=== PATIENT | female | born 1990 | race Caucasian/White ===

== ENCOUNTER → 2016-05-10 | Outpatient (CLI) | payer BC ==
[~2016-05-10] MED LIST: PRENTAB26 PO; PROM12.57 PO
[2016-05-13 14:54] LABS: CHLAMYDIA TRACH RNA*** NOT DETECTED (NOT DETECTED); GC (NEIS GONORRHOEAE)RNA** NOT DETECTED (NOT DETECTED)
== END | disposition home or self-care (01) ==
LOC: C.LABSPEC 13:53
PROVIDERS: ATTEND Obstetrics & Gynecology
DX: O09.01 Supervision of pregnancy with history of infertility, first trimester (principal)

== ENCOUNTER → 2016-05-10 | Outpatient (CLI) | payer BC ==
[2016-05-10 10:15] LABS: BASO % 0.2 %; BASO ABS # 0.02 K/uL (0-0.2); COMPLETE YES; EOS % 0.6 %; HEMATOCRIT 38.8 % (37-47); IG% 0.2 %; LYMPH ABS # 1.31 K/uL (1.2-3.4); MEAN CELL VOLUME 83.8 fL (80-100); MEAN CORPUSCULAR HEMOGLOBIN 29.8 pg (25-34); MEAN CORPUSCULAR HGB CONC 35.6 g/dl (32-36); MEAN PLATELET VOLUME 10.6 fL (7.4-10.4); MONO % 5.7 %; NEUT % 79.3 %; PLATELET COUNT 215 K/uL (130-400); RED BLOOD COUNT 4.63 M/uL (4.2-5.4); WHITE BLOOD COUNT 9.37 K/uL (4.8-10.8)
[2016-05-10 10:36] LABS: THYROID STIMULATING HORMONE 3.06 uIu/ml (0.300-4.500)
== END | disposition home or self-care (01) ==
LOC: C.LAB1850 09:00
PROVIDERS: ATTEND Obstetrics & Gynecology
DX: O09.01 Supervision of pregnancy with history of infertility, first trimester (principal); O99.281 Endocrine, nutritional and metabolic diseases complicating pregnancy, first trimester; E03.9 Hypothyroidism, unspecified

== ENCOUNTER → 2016-05-10 | Outpatient (CLI) | payer BC | END | disposition home or self-care (01) | LOC: C.PAPS 14:46 | PROVIDERS: ATTEND Obstetrics & Gynecology | DX: O09.01 Supervision of pregnancy with history of infertility, first trimester (principal); Z3A.00 Weeks of gestation of pregnancy not specified ==

== ENCOUNTER → 2016-07-02 | Outpatient (CLI) | payer BC ==
[2016-07-02 12:29] LABS: THYROID STIMULATING HORMONE 2.55 uIu/ml (0.300-4.500)
[2016-07-02 14:08] LABS: GTGD 50 Grams
== END | disposition home or self-care (01) ==
LOC: C.LAB1850 10:15
PROVIDERS: ATTEND Obstetrics & Gynecology
DX: E03.9 Hypothyroidism, unspecified (principal); O09.02 Supervision of pregnancy with history of infertility, second trimester; Z3A.00 Weeks of gestation of pregnancy not specified

== ENCOUNTER → 2016-09-24 | Outpatient (CLI) | payer BC ==
[2016-09-24 10:38] LABS: URINE APPEARANCE CLEAR (CLEAR); URINE BILIRUBIN NEG (NEG); URINE COLOR YELLOW; URINE NITRITE NEG (NEG); URINE PH 7.5 (4.5-7.5); URINE SPECIFIC GRAVITY 1.011 (1.000-1.030); UROBILINOGEN NEG (NEG)
[2016-09-24 10:42] LABS: MANUAL MICROSCOPIC REQUIRED? NO; REVIEW REQ? NO
== END | disposition home or self-care (01) ==
LOC: C.LABSPEC 10:00
PROVIDERS: ATTEND Obstetrics & Gynecology
DX: O09.03 Supervision of pregnancy with history of infertility, third trimester (principal)

== ENCOUNTER → 2016-09-24 | Outpatient (CLI) | payer BC ==
[2016-09-24 11:33] LABS: HEMATOCRIT 33.5 % (37-47)
[2016-09-24 12:17] LABS: GTGD 50 Grams
== END | disposition home or self-care (01) ==
LOC: C.LAB1850 09:18
PROVIDERS: ATTEND Obstetrics & Gynecology
DX: O09.03 Supervision of pregnancy with history of infertility, third trimester (principal)

== ENCOUNTER → 2016-11-17 | Outpatient (CLI) | payer BC | END | disposition home or self-care (01) | LOC: C.LABSPEC 10:58 | PROVIDERS: ATTEND Obstetrics & Gynecology | DX: O09.03 Supervision of pregnancy with history of infertility, third trimester (principal) ==

== ENCOUNTER 2016-11-23 13:52 | Outpatient (CLI) | payer BC ==
[~2016-11-23] VITALS: Ht 160 cm; Wt 100.0 kg
[2016-11-23] MEDS ORDERED: LACTATED RINGER'S 1000ML 1,000 ML IV SCH (14:27)
[2016-11-23 15:55] VITALS: Ht 160 cm; Wt 100.0 kg
[2016-11-23] MEDS ORDERED: PRENTAB26 PO (15:55)
[2016-11-23] MEDS ORDERED: PROM12.57 PO (15:55)
== END 2016-11-23 17:27 | disposition home or self-care (01) ==
LOC: C.OPB 13:52 → C.LD 13:52 → C.OPB 17:27 → EDSTATUS 12-11 13:56
PROVIDERS: ATTEND Obstetrics & Gynecology
DX: O99.283 Endocrine, nutritional and metabolic diseases complicating pregnancy, third trimester (principal); E86.0 Dehydration; Z3A.37 37 weeks gestation of pregnancy

== ENCOUNTER 2016-12-20 19:00 | Inpatient (IN) | payer BC ==
[~2016-12-20] VITALS: Ht 160 cm; Wt 99.1 kg
[2016-12-20 21:16] VITALS: Ht 160 cm; Wt 99.1 kg
[2016-12-20] MEDS ORDERED: LACTATED RINGER'S 1000ML 1,000 ML IV SCH (21:17)
[2016-12-20] MEDS ORDERED: LACTATED RINGER'S 1000ML 1,000 ML IV PRN (21:17)
[2016-12-20 21:46] LABS: HEMATOCRIT 34.5 % (37-47); MEAN CELL VOLUME 90.3 fL (80-100); MEAN CORPUSCULAR HEMOGLOBIN 31.9 pg (25-34); MEAN CORPUSCULAR HGB CONC 35.4 g/dl (32-36); MEAN PLATELET VOLUME 10.5 fL (7.4-10.4); PLATELET COUNT 183 K/uL (130-400); RED BLOOD COUNT 3.82 M/uL (4.2-5.4); WHITE BLOOD COUNT 10.97 K/uL (4.8-10.8)
[2016-12-20] MEDS ORDERED: LACTATED RINGER'S 1000ML 500 ML IV PRN (21:46)
[2016-12-20] MEDS ORDERED: OXYTOCIN 30 UNITS/500ML NSS IV PRN (22:00)
[2016-12-21] MEDS ORDERED: BUPIVACAINE 0.25% 30 ML VIAL ONE (02:20)
[2016-12-21] MEDS ORDERED: EpHEDrine SULFATE INJ 50 MG/ML AMP ONE (02:20)
[2016-12-21] MEDS ORDERED: FENTANYL 2MCG/ML ROPIV 1.25MG/ML 100ML BAG EPI ONE (02:20)
[2016-12-21] MEDS ORDERED: FENTANYL CITRATE INJ 50 MCG/1 ML 2 ML VIAL ONE (02:20)
[2016-12-21] MEDS ORDERED: LACTATED RINGER'S 1000ML 500 ML IV PRN (02:56)
[2016-12-21] MEDS ORDERED: NALOXONE HCL INJ 1 MG in SODIUM CHLORIDE 0.9% 1000ML 1,000 ML IV PRN (02:56)
[2016-12-21] MEDS ORDERED: PROMETHAZINE HCL INJ 6.25 MG in SODIUM CHLORIDE 0.9% 50ML 50 ML IV PRN (03:00)
[2016-12-21] MEDS ORDERED: NALOXONE HCL INJ 0.4 MG/1 ML VIAL/CARP IV PRN (03:00)
[2016-12-21] MEDS ORDERED: NALBUPHINE HCL INJ 10 MG/ML AMP IV PRN (03:00)
[2016-12-21] MEDS ORDERED: DiphenhydrAMINE HCL 50 MG/ML VIAL IV PRN (03:00)
[2016-12-21] MEDS ORDERED: ONDANSETRON INJ 2 MG/ML 2 ML VIAL IV PRN (03:00)
[2016-12-21] MEDS ORDERED: EpHEDrine SULFATE INJ 50 MG/ML AMP IV PRN (03:00)
[2016-12-21] MEDS ORDERED: FENTANYL 2MCG/ML ROPIV 1.25MG/ML 100ML BAG EPI PRN (03:00)
[2016-12-21] MEDS ORDERED: METHYLERGONOVINE MALEATE 0.2 MG/ML AMP ONE (08:42)
[2016-12-21] MEDS ORDERED: BENZOCAINE 20% AER SPR 82.5 GM CAN EXT PRN (09:30)
[2016-12-21] MEDS ORDERED: OXYCODONE/ACETAMINOPHEN 5-325 TAB PO PRN (09:30)
[2016-12-21] MEDS ORDERED: LANOLIN OINT EXT PRN ×2 (09:30)
[2016-12-21] MEDS ORDERED: DIPHTHERIA/TETANUS/PERTUSSIS 0.5 ML SYR/VIAL IM. ONE (09:30)
[2016-12-21] MEDS ORDERED: METHYLERGONOVINE MALEATE 0.2 MG/ML AMP IM ONE (09:30)
[2016-12-21] MEDS ORDERED: SUPERCREAM 0.870 % 15GM JAR EXT PRN (09:30)
[2016-12-21] MEDS ORDERED: OXYTOCIN 30 UNITS/500ML NSS IV PRN (09:30)
[2016-12-21] MEDS ORDERED: HYDROCORTISONE ACETATE 25 MG SUPP PR PRN (09:30)
[2016-12-21] MEDS ORDERED: ACETAMINOPHEN 325 MG TAB PO PRN (09:30)
--- NOTE | 2016-12-21 10:23 | DELIVERY SUMMARY ---
DATE OF OPERATION: 12/21/2016 DATE OF DELIVERY: 12/21/2016 PREOPERATIVE DIAGNOSIS: Intrauterine at 41-3/7 weeks. POSTOPERATIVE DIAGNOSES: 1. Intrauterine at 41-3/7 weeks. 2. Deceleration with contractions. PROCEDURES: 1. García catheter for cervical ripening. 2. Pitocin augmentation. 3. Normal spontaneous vaginal delivery. 4. Stellate vaginal laceration and bilateral labial lacerations with repair. SURGEON: Dr. Pang. ANESTHESIA: Epidural. ESTIMATED BLOOD LOSS: 450 mL. PROCEDURE: The patient presented to labor and delivery on the night of 12/20/2016 to have a García bulb placed for cervical ripening for her post dates induction on the following day. The García was placed successfully but while under observations there were a couple decelerations that appeared variable and occurred with a contraction. Decision was made just to go ahead and proceed with induction at that time without sending the patient home. So, the García bulb was placed. She was placed on Pitocin augmentation. The García bulb eventually fell out. She eventually underwent epidural anesthesia. She had amniotomy at 2:53 a.m. for clear fluid. She progressed then spontaneously complete complete +2 station. The patient pushed effectively to deliver a viable female in ABRAM presentation. There was no nuchal cord. The nose and mouth were bulb suctioned. The rest of the infant was then delivered without difficulty. There was immediate cry and the was vigorous so the nose and mouth were bulb suctioned and the was placed on the maternal abdomen for drying and attention. At 1 minute of life the cord was clamped and cut. Cord blood and segment were obtained. The placenta was delivered spontaneously intact with a 3-vessel cord. Hemostasis obtained with dilute Pitocin, fundal massage and IM methargen. A stellate vaginal laceration was repaired with 3-0 Vicryl and bilateral labial lacerations were repaired with interrupted sutures of 4-0 Vicryl. Apgars were 8 and 9. Sponge, lap and needle counts were correct. Mother and baby doing well at the end of the delivery. I attest to the content of the Intraoperative Record and any orders documented therein. Any exception s are noted below.
--- NOTE | 2016-12-21 10:32 | Anesthesia Procedure Note ---
Anesthesia Epidural Removal Nt Date & Time Dec 21, 2016 at 10:32 Vital Signs Pain Intensity: 0.0 Notes Mental Status: alert / awake / arousable, participated in evaluation Nausea / Vomiting: adequately controlled Pain: adequately controlled Airway Patency, RR, SpO2: stable & adequate BP & HR: stable & adequate Hydration State: stable & adequate Neuraxial Anesthesia: was administered, sensory block is resolving Anesthetic Complications: no major complications apparent, pt satisfied with anesthetic care Epidural: removed without complications, with tip intact
[2016-12-21 12:30] VITALS: BP 134/72; PULSE 100; TEMP 36.7
[2016-12-21] MEDS: IBUPROFEN 600 MG TAB PO PRN ×3 (12:53→22:20)
[2016-12-21 15:30] VITALS: BP 116/73; PULSE 85; TEMP 36.6
[2016-12-21 19:30] VITALS: BP 109/69; PULSE 88; TEMP 36.7
[2016-12-21] MEDS: DOCUSATE SODIUM 100 MG CAP PO SCH (19:53)
[2016-12-21 23:45] VITALS: BP 121/76; PULSE 94; TEMP 36.6
[2016-12-22] MEDS: IBUPROFEN 600 MG TAB PO PRN ×3 (03:22→13:03)
[2016-12-22 04:00] VITALS: BP 120/70; PULSE 90; TEMP 36.8
[2016-12-22 06:58] LABS: HEMATOCRIT 30.1 % (37-47)
--- NOTE | 2016-12-22 07:11 | Discharge Instructions ---
Discharge Instructions Date of Service Dec 22, 2016. Admission Reason for Admission: García Bulb Discharge Discharge Diagnosis / Problem: DELIVERY Discharge Goals Goal(s): Routine recovery after delivery Medications Continue Dispensed Medications: supercream, dermaplast, tucks, lansinoh Activity Recommendations Activity Limitations: per Instructions/Follow-up section . Instructions / Follow-Up Instructions / Follow-Up ACTIVITY RECOMMENDATIONS: * Gradual return to full activity over the next 2-3 weeks. * No lifting - nothing heavier than baby over the next 2-3 weeks. * Do not engage in vigorous exercise, sexual activity or sports until cleared by your physician. * Do not drive or operate any motorized equipment until cleared by your physician. * You may shower/bathe daily. MEDICATIONS: For discomfort or pain, you may use Acetaminophen (Tylenol), Ibuprofen (Advil), or Naproxen (Aleve) following the package directions. For constipation you may use Colace following the package directions. BREAST CARE: If you are not breast feeding: * Wear a supportive bra 24 hours a day for one to two weeks. * Avoid stimulating your breasts and nipples as much as possible during the first few weeks after delivery. * When taking a shower, have the warm water hit your back, not breasts. * When your breasts feel full, apply ice packs. Usually three to four times a day helps ease the discomfort. * Take a mild pain medication (Tylenol / Motrin) when you are uncomfortable. If breast feeding: * Use breast milk to lubricate nipples. Lansinoh cream may be used for sore nipples. You do not need to remove cream prior to breast feeding. If using a different brand of cream, check the label for directions regarding removal of cream prior to nursing. * Wear a supportive bra. * If having problems with breasts or breast feeding, call a seo consultant or your health care provider. EPISIOTOMY CARE: After delivery, if you have an episiotomy (stitches), the following steps will ease discomfort and aid healing. * For the first 24 hours after delivery, place ice packs next to your episiotomy to help reduce swelling. * After the first 24 hour-period, sitz baths, either portable or in the tub, are suggested. A shower with a shower arm sprayed over the episiotomy may be comforting. * Aimee care should be done after each voiding and bowel movement. Squirt warm water from a plastic bottle over the perineum (region of the body between the anus and urinary opening) and pat dry. * Use Dermoplast to ease discomfort. Shake container. Clive directly over the episiotomy. Place a Tucks on a clean sanitary pad next to your episiotomy. SPECIAL CARE INSTRUCTIONS: When you are discharged from the hospital, it is important for you to follow the instructions listed below: * During the first week at home, you should be able to care for yourself and your baby. In addition, the usual light household activities are encouraged. * Limit your activities to the way you feel. Do not try to clean the house or move furniture. Be sensible. * If you actively engage in sports and have done so up until the time of your delivery, you may resume these activities as soon as you feel able. This may take up to one month or even longer. Use good judgment. * Continue to take your vitamins for at least six weeks after the of your baby. * Your diet need not be limited unless you were on a special diet before your delivery. Breast-feeding mothers need around 2500 calories per day and at least 64-80 ounces of fluid per day (8 to 10 glasses). * You should eat foods from the four major food groups. Crash diets or fad diets are to be avoided. Eating lean meats, fresh fruits and vegetables, low-fat dairy products, high fiber foods and a regular exercise program, will help you get back to your pre- weight without putting your health at risk. * Constipation is sometimes a problem after delivery. Take a mild laxative as needed. If breast feeding, Milk of Magnesia is acceptable to use. You may use a suppository or Fleets enema if no episiotomy. * A daily shower or tub bath is suggested. Be sure to thoroughly and gently dry the perineum. * A bloody vaginal discharge will usually continue until around four weeks post . A small amount of bleeding may continue for as long as six weeks. Vaginal discharge changes from the bright red bleeding after delivery to pink then brownish and finally yellowish-pink before becoming white and disappearing. * Bleeding may increase with activity. Your first period may come in 4-8 weeks. If you are breast feeding, your period may be delayed even longer. * Springer (sex) can begin whenever both you and your partner feel comfortable and do not have any form of genital infection. It is recommended that you wait at least six weeks for internal and external healing to occur. If you have questions, please talk to your health care practitioner. A condom should be used to prevent infection and . * Foreplay, gentle intercourse and lubrication is very important the first several times to prevent pain. A water-based lubricant such as K-Y jelly or Astroglide may be used. * If you have RH negative blood and your baby is RH positive, you will receive RHOGAM by injection prior to discharge. The nurse will give you a card to keep with you that has the date and place that you received RHOGAM after delivery. * During your care, you had a Rubella screen done to check for the presence of rubella antibodies in your blood. If your test was negative, you will receive a Rubella vaccine prior to discharge. This vaccine may cause a fever, soreness at the injection site and flu-like symptoms. If these symptoms persist, notify your health care practitioner. is not advised for one month after a Rubella vaccine. * Verbalizes understanding of car seat law as reviewed with patient nursing. * Car Seat hand-out given and reviewed with patient by nursing. * Shaken baby information reviewed with patient by nursing. Call you doctor if: * Heavy bleeding (saturating several pads an hour) or passing clots the size of your fist. * A fever >101 degrees F (38.3 degrees C) on two occasions four hours apart and /or chills. * Unusual pain in the pelvic or vaginal areas. * "Baby Blues" lasting longer than two weeks. If you have any questions or concerns, call your health care practitioner at . FOLLOW UP VISIT: * Please call the office at to schedule a 6 week examination. It is important you keep this appointment. It is important for you to make arrangements for either yearly or twice yearly check-ups thereafter. Current Hospital Diet Patient's current hospital diet: Regular OB Diet Discharge Diet Recommended Diet: Regular Diet Pending Studies Studies pending at discharge: no Medical Emergencies . Who to Call and When: Medical Emergencies: If at any time you feel your situation is an emergency, please call 911 immediately. . Non-Emergent Contact Non-Emergency issues call your: Primary Care Provider . . "Provider Documentation" section prepared by Yokasta Trammell. . VTE Core Measure Inpt VTE Proph given/why not?: Treatment not indicated
--- NOTE | 2016-12-22 07:14 | Progress Note ---
Subjective Dec 22, 2016. Subjective conversation w/ patient, physical exam, chart review, lab review Ambulation: ambulating normally Voiding: no voiding problems Passing Gas: Yes Diet Tolerance: Regular Diet Lochia: Moderate Feeding Type: Breast Feeding Pain: controlled Review of Systems Respiratory: No shortness of breath Cardiac: No chest pain Abdomen: No nausea, No vomiting Female : No dysuria Objective Vital Signs Date Time Temp Pulse Resp B/P (MAP) Pulse Ox O2 Delivery O2 Flow Rate FiO2 12/22/16 04:00 36.8 90 18 120/70 (87) Room Air 12/21/16 23:45 Room Air 12/21/16 23:45 36.6 94 18 121/76 (91) Room Air 12/21/16 19:30 Room Air 12/21/16 19:30 36.7 88 20 109/69 (82) Room Air 12/21/16 15:30 36.6 85 20 116/73 (87) Room Air 12/21/16 15:30 Room Air 12/21/16 12:30 36.7 100 20 134/72 (92) Room Air 12/21/16 12:30 Room Air Physical Exam General Appearance: WELL-APPEARING, WD/WN, NO APPARENT DISTRESS Respiratory/Chest: lungs clear, normal breath sounds Cardiovascular: regular rate, rhythm Abdomen: normal bowel sounds, soft Fundus: Firm, Tender (appropriately tender), Relation to Umbilicus (1 below U) Extremities: no calf tenderness Laboratory Results Last 24 Hours Test 12/22/16 06:38 Hemoglobin 10.3 g/dL Hematocrit 30.1 % Assessment and Plan Post- Day#: 1 Continue Routine Care: - Vital Signs stable - Hemoglobin Reviewed. 10.3 - Blood Type: A+, GBS-, Rubella Immune. - Pt is doing well clinically. - Encourage Ambulation, Monitor and Control pain with Motrin PRN, Resume regular diet, Monitor Lochia - Encourage Breast Feeding. - Pt counselled on discharge instructions. FLAQUITO TRAMMELL PGY1 FM RESIDENT Resident Physician Supervision Note: I interviewed and examined the patient. Discussed with Dr. Trammell and agree with findings and plan as documented in the note. Any exceptions or clarifications are listed here: Doing well. She desires d/c later today. Instructions given. Documented By: Miranda Pang Resident Tracking Resident Involvement: Resident Care Provided Care Provided: OB Delivery
[2016-12-22 07:28] VITALS: BP 116/70; PULSE 80; TEMP 36.6; O2SAT 97
[2016-12-22] MEDS ORDERED: PRENATAL VITAMIN TAB PO SCH (08:00)
[2016-12-22] MEDS: DOCUSATE SODIUM 100 MG CAP PO SCH (11:01)
[2016-12-22 16:35] VITALS: BP_DIAS 70; PULSE 80; TEMP 36.6
== END 2016-12-22 16:35 | disposition home or self-care (01) | DRG 775 ==
LOC: C.OPB 19:00 → C.LD 19:01 → C.OPB 21:19 → C.OBG 12-21 12:30
PROVIDERS: ADMIT Obstetrics & Gynecology; ATTEND Obstetrics & Gynecology
PROC: 3E033VJ Introduction of Other Hormone into Peripheral Vein, Percutaneous Approach (ICD-10-PCS; principal; 2016-12-21)
PROC: 10E0XZZ Delivery of Products of Conception, External Approach (ICD-10-PCS; principal; 2016-12-21)
PROC: 10907ZC Drainage of Amniotic Fluid, Therapeutic from Products of Conception, Via Natural or Artificial Opening (ICD-10-PCS; principal; 2016-12-21)
PROC: 0HQ9XZZ Repair Perineum Skin, External Approach (ICD-10-PCS; principal; 2016-12-21)
DX: O48.0 Post-term pregnancy (principal); O76 Abnormality in fetal heart rate and rhythm complicating labor and delivery; O70.0 First degree perineal laceration during delivery; Z3A.41 41 weeks gestation of pregnancy; Z37.0 Single live birth

== ENCOUNTER → 2017-02-01 | Outpatient (CLI) | payer BC ==
[~2017-02-01] MED LIST changes: -PROM12.57 PO
[2017-02-01 15:59] LABS: THYROID STIMULATING HORMONE 1.52 uIu/ml (0.300-4.500)
== END | disposition home or self-care (01) ==
LOC: C.LAB1850 14:30
PROVIDERS: ATTEND Obstetrics & Gynecology
DX: E03.9 Hypothyroidism, unspecified (principal)

== ENCOUNTER → 2017-05-04 | Outpatient (CLI) | payer BC | END | disposition home or self-care (01) | LOC: C.LAB1850 09:28 | PROVIDERS: ATTEND Obstetrics & Gynecology | DX: Z32.01 Encounter for pregnancy test, result positive (principal) ==

== ENCOUNTER → 2017-05-06 | Outpatient (CLI) | payer BC | END | disposition home or self-care (01) | LOC: C.LAB1850 09:46 | PROVIDERS: ATTEND Obstetrics & Gynecology | DX: O20.0 Threatened abortion (principal) ==

== ENCOUNTER → 2017-06-21 | Outpatient (CLI) | payer BC ==
[2017-06-21 10:07] LABS: BASO % 0.3 %; BASO ABS # 0.02 K/uL (0-0.2); EOS % 0.9 %; EOS ABS # 0.06 K/uL (0-0.5); HEMATOCRIT 38.8 % (37-47); HEMOGLOBIN 13.8 g/dL (12.0-16.0); IG# 0.01 K/uL (0.00-0.02); LYMPH % 21.1 %; LYMPH ABS # 1.44 K/uL (1.2-3.4); MEAN CELL VOLUME 84.9 fL (80-100); MEAN CORPUSCULAR HEMOGLOBIN 30.2 pg (25-34); MEAN CORPUSCULAR HGB CONC 35.6 g/dl (32-36); MEAN PLATELET VOLUME 10.2 fL (7.4-10.4); MONO % 6.7 %; MONO ABS # 0.46 K/uL (0.11-0.59); NEUT % 70.9 %; NEUT ABS # 4.83 K/uL (1.4-6.5); PLATELET COUNT 213 K/uL (130-400); RED CELL DISTRIBUTION WIDTH SD 40.2 fL (36.4-46.3); WHITE BLOOD COUNT 6.82 K/uL (4.8-10.8)
== END | disposition home or self-care (01) ==
LOC: C.LAB1850 08:58
PROVIDERS: ATTEND Obstetrics & Gynecology
DX: Z34.81 Encounter for supervision of other normal pregnancy, first trimester (principal)

== ENCOUNTER → 2017-08-05 | Outpatient (CLI) | payer BC | END | disposition home or self-care (01) | LOC: C.LAB1850 09:48 | PROVIDERS: ATTEND Obstetrics & Gynecology | DX: Z34.82 Encounter for supervision of other normal pregnancy, second trimester (principal) ==

== ENCOUNTER 2017-11-30 08:51 | Outpatient (CLI) | payer BC ==
[2017-11-30] MEDS ORDERED: TERBUTALINE SULFATE 1 MG/ML VIAL ONE (11:12)
[2017-11-30] MEDS ORDERED: TERBUTALINE SULFATE 1 MG/ML VIAL SQ PRN (11:15)
== END 2017-11-30 12:00 | disposition home or self-care (01) ==
LOC: C.OPB 08:51 → C.LD 08:52 → C.OPB 12:00
PROVIDERS: ATTEND Obstetrics & Gynecology
DX: O62.9 Abnormality of forces of labor, unspecified (principal); Z3A.33 33 weeks gestation of pregnancy; Z87.442 Personal history of urinary calculi

== ENCOUNTER 2021-11-17 07:33 | Inpatient (IN) ==
[2021-11-17] MEDS ORDERED: LACTATED RINGER'S 1,000 ML IV PRN (07:37)
[2021-11-17] MEDS ORDERED: OXYTOCIN 30 UNITS/500 ML BAG IV PRN ×3 (07:37→16:30)
[2021-11-17] MEDS ORDERED: PENICILLIN G POTASSIUM 6 MU in DEXTROSE 5% 250 ML IV ONE (07:50)
--- NOTE | 2021-11-17 07:53 | History & Physical Report ---
Date of Service November 17, 2021 Assessment & Plan (1) GBS carrier: (2) with 39 completed weeks gestation: (3) Large for gestational age fetus affecting management of mother: Plan admit, gbs prophylaxis. fetus category one. Plan pitocin induction. arom as indicated. anticipate . Admission and Anticipated Discharge Date Admission Date: November 17, 2021 History of Present Illness Chief Complaint: induction Primary Care Provider: TANYA Rendon Patient is a 30yowf with iup at 39 4/7 weeks who presents to labor and delivery for induction for LGA babies. Her last baby was 9+ pounds. She had a kaufman placed last night and it fell out about 10pm. she is having some contractions and had a little bit of bleeding after placement. +fm. complicated by unstable lie. Was vertex last night. and Delivery Plans GBS + urine treat in labor Obesity (BMI between 35-39 @ beginning of ) *Growth US @ 32 wks *Weekly NSTs @ 36wks Transverse/unstable lie Consider induction at 39wk-40w due to history of prior babies size-Scheduled 11/17/21 Covid Test 11/11/21 OB Labs: Blood Type A Positive 11/06/21 Antibody Screen NEGATIVE 11/06/21 Hemoglobin 12.0 g/dl (12.0-16.0) 11/06/21 Hematocrit 34.2 % (34.1-44.9) 11/06/21 Mean Corpuscular Volume 89.1 fL (80.0-100.0) 11/06/21 Platelet Count 191 K/uL (130-400) 11/06/21 Rubella IgG Antibody Immune (Immune) 04/03/21 Rapid Plasma Reagin Nonreactive (Nonreactive) 04/03/21 Hepatitis B Surface Antigen Neg (Neg) 04/03/21 Hepatitis C Antibody Neg (Neg) 04/03/21 HIV (1&2) Ab and P24 Ag, 4th Gener Neg (Neg) 04/03/21 Glucose 1 Hour 50 gm Load 100 mg/dl (70-130) 08/26/21 OB Optional Labs: Chlamydia trachomatis RNA NOT DETECTED (NOT DETECTED) 04/03/21 Neisseria gonorrhoeae RNA NOT DETECTED (NOT DETECTED) 04/03/21 Thyroid Stimulating Hormone (TSH) 1.520 uIu/ml (0.300-4.500) 02/01/17 GBS positive urine Allergies Allergy/AdvReac Type Severity Reaction Status Date / Time No Known Allergies Allergy Verified 11/16/21 11:00 Home Medications Medication Instructions Recorded Confirmed Type prenat.vits,micah,[id number]-[id number] 1 tab PO DAILY 04/01/21 11/16/21 History breast pump #1 ea 09/23/21 11/16/21 Rx Patient History Medical History Arrhythmia Cramping affecting , antepartum Dehydration Encounter for visit Encounter for pre-operative examination Encounter for preventative adult health care examination Endometrioma History of chicken pox History of dysmenorrhea History of kidney stones History of ovarian cyst Hx of vaginal delivery Ovarian cyst Post-dates with 23 completed weeks gestation contractions Spontaneous onset of labor Subclinical hypothyroidism (spontaneous vaginal delivery) Term Urinary symptom or sign Urinary tract infection Vaginal bleeding Surgical History History of oral surgery History of tonsillectomy Family History Grandmother (Maternal) Colorectal cancer Grandfather (Maternal) Diabetes Mother Hypertension Father Melanoma Other Heart disease Denies family history of Ovarian cancer Myocardial infarction Breast cancer Social History Smoking Status: Never smoker Second Hand Exposure: No; Hx Alcohol Use: No Hx Substance Use: No Preferred Language: Danish Communication Ability: Effective Workforce Development Assistant Required: No Beliefs That Will Affect Care: None marital status: marital status details: Clarisa Lamberttio (29) [phone] Current Living Situation: Spouse and Family Current Living Situation Comment: lives with spouse, 2 children, no pets current occupational status: employed current occupation: [employer] Feels Safe at Home: Yes caffeine: Yes Dental Care, Regularly: Yes Seatbelt Use: always Sunscreen Use: Yes Assistive Devices: None OB History Past Pregnancies Del. Date GA wks Lbr Lgth wt Sex Type del Anes Place Del Prov ? Com ment 12/21/16 41 7 8-3 F Epidu [facility] Dr. Miramontes No 01/13/18 39 12 9 M Epidura l [facility] Dr. Moffett No Physical Exam Constitutional: WD/WN, vitals as above Gastrointestinal (Abdomen): soft, gravid, nt Psychiatric: A+Ox3, euthymic affect Genitourinary: cx--3+/75/-2/mid/soft cephalic toco--irritabilit efm--150s with mod variability, accels to 170s, no decels Results & Data ([facility]) Vital Signs (Past 12 Hours) Vital Signs Pulse BP 11/17/21 07:44 120 H 136/83 Code Status & VTE Plan VTE Prophylaxis Plan VTE Prophylaxis will be ordered: No Coding Level of Care Code None Diagnoses GBS carrier Z22.330 with 39 completed weeks gestation Z3A.39 Large for gestational age fetus affecting management of mother O36.60X0
[2021-11-17 08:08] LABS: Hematocrit (blood only) 35.6 % (34.1-44.9); Hemoglobin 12.4 g/dl (12.0-16.0); Mean Corpuscular Hemoglobin 30.7 pg (25.0-34.0); Mean Corpuscular Hgb Conc 34.8 g/dL (32.0-36.0); Mean Corpuscular Volume 88.1 fL (80.0-100.0); Platelet Count 180 K/uL (130-400); RDW Coefficient of Variation 12.8 % (11.5-14.5); RDW Standard Deviation 41.2 fL (36.4-46.3); Red Blood Count 4.04 M/uL (3.93-5.22); White Blood Count 9.49 K/ul (4.8-10.8)
[2021-11-17] MEDS ORDERED: PENICILLIN G POTASSIUM 3 MU in DEXTROSE 5% 100 ML IV PRN (10:37)
[2021-11-17] MEDS ORDERED: SODIUM CHLORIDE 0.9% 250 ML IV PRN (11:48)
[2021-11-17] MEDS ORDERED: ePHEDrine sulfate 50 MG/ML AMP ONE (13:11)
[2021-11-17] MEDS ORDERED: BUPIVACAINE 0.25% 30 ML VIAL ONE (13:11)
[2021-11-17] MEDS ORDERED: fentaNYL citrate 100 MCG/2 ML VIAL ONE (13:11)
[2021-11-17] MEDS ORDERED: SODIUM CHLORIDE 0.9% INJ 10 ML VIAL ONE (13:11)
[2021-11-17] MEDS ORDERED: LIDOCAINE 2%/EPINEPHRINE 1:200,000 20 ML SDV ONE (13:11)
[2021-11-17] MEDS ORDERED: fentaNYL 2MCG/ML ROPIVACAINE 1.25MG/ML 100 ML BAG EPI ONE (13:12)
--- NOTE | 2021-11-17 13:15 | Anesthesiology Consultation ---
Date of Service November 17, 2021 Assessment & Plan (1) Encounter for pre-operative examination: Chart Review Chart Review: Acceptable Risk for Labor Epidural History Height/Weight Height: 5 ft 5 in Weight: 107.586 kg Allergies Allergy/AdvReac Type Severity Reaction Status Date / Time No Known Allergies Allergy Verified 11/17/21 08:48 Medications Home Medications Medication Instructions Recorded Confirmed Last Taken prenat.vits,micah,zfz-[id number]-feaaj 1 tab PO DAILY 04/01/21 11/17/21 11/16/21 09:00 breast pump #1 ea 09/23/21 11/16/21 Unknown Active Medications Generic Name Dose Route Start Last Admin Trade Name Freq PRN Reason Stop Dose Admin Oxytocin 30 units in 500 mls @ 12 mls/hr 11/17/21 07:37 11/17/21 10:35 Pitocin IV 11/19/21 07:36 0.72 units/hr .Q24H PRN 12 mls/hr Labor Induction/Augmentation Titration Protocol 0.72 UNITS/HR Lactated Ringer's 1,000 mls @ 125 mls/hr 11/17/21 07:37 11/17/21 09:15 Lr IV 11/19/21 07:36 125 mls/hr .Q8H PRN Infusion L&D Protocol Protocol Past Medical History Medical History (Updated 11/17/21 @ 13:14 by Nikos Laguerre MD) Arrhythmia Dehydration Encounter for preventative adult health care examination Endometrioma History of chicken pox History of dysmenorrhea History of kidney stones History of ovarian cyst Hx of vaginal delivery with epidural Ovarian cyst Post-dates Spontaneous onset of labor Subclinical hypothyroidism (spontaneous vaginal delivery) Term Urinary tract infection Vaginal bleeding Past Family History Family History Grandmother (Maternal) Colorectal cancer Grandfather (Maternal) Diabetes Mother Hypertension Father Melanoma Other Heart disease Denies family history of Ovarian cancer Myocardial infarction Breast cancer Past Surgical History Surgical History History of oral surgery History of tonsillectomy Social History Smoking Status: Never smoker Hx Alcohol Use: No Hx Substance Use: No substance use type: does not use Physical Exam Vital Signs Last Vital Signs Temp 36.7 C 11/17/21 11:20 Pulse 113 H 11/17/21 12:11 Resp 18 11/17/21 12:30 BP 118/85 11/17/21 12:11 Testing Laboratory Results 11/17/21 07:52
[2021-11-17] MEDS ORDERED: ONDANSETRON INJ 2 MG/ML 2 ML VIAL IV PRN (13:43)
[2021-11-17] MEDS ORDERED: NALOXONE HCL 1 MG in SODIUM CHLORIDE 0.9% 1000ML 1,000 ML IV PRN (13:43)
[2021-11-17] MEDS ORDERED: fentaNYL 2MCG/ML ROPIVACAINE 1.25MG/ML 100 ML BAG EPI PRN (13:43)
[2021-11-17] MEDS ORDERED: NALOXONE HCL 0.4 MG/1 ML VIAL/CARP IV PRN (13:43)
[2021-11-17] MEDS ORDERED: ePHEDrine sulfate 50 MG/ML AMP IV PRN (13:43)
[2021-11-17] MEDS ORDERED: BENZOCAINE 20% AER SPR 82.5 GM CAN EXT PRN (16:30)
[2021-11-17] MEDS ORDERED: bisacodyL 10 MG SUPP PR PRN (16:30)
[2021-11-17] MEDS ORDERED: ACETAMINOPHEN 325 MG TAB PO PRN (16:30)
[2021-11-17] MEDS ORDERED: DIPHTHERIA/TETANUS/PERTUSSIS 0.5 ML SYR/VIAL IM ONE (16:30)
[2021-11-17] MEDS ORDERED: HYDROCORTISONE ACETATE 25 MG SUPP PR PRN (16:30)
--- NOTE | 2021-11-17 16:31 | Delivery Summary ---
Vaginal Delivery Summary Date of Service November 17, 2021 Vaginal Delivery Summary Patient induced after 39 weeks she was induced by Pitocin and then received an epidural artificial rupture of membranes for clear fluid and progressed to fully dilated and pushed a baby over 2 contractions. Baby was born in occiput anterior position mouth and then nares suctioned with bulb live vigorous male infant baby was delivered by gentle traction no excessive force was used cord clamped and cut cord blood obtained placenta removed with gentle traction IV Pitocin started second-degree tear repaired with 3-0 Vicryl sponge and instrument counts correct estimated blood loss 200 mL
--- NOTE | 2021-11-17 17:22 | Anesthesia Procedure Note ---
Date of Service November 17, 2021 Anesthesia Post Epidural Note Vital Signs Vital Signs: Temp Pulse Resp BP Pulse Ox 37.3 C 71 18 126/63 100 11/17/21 16:30 11/17/21 17:12 11/17/21 16:45 11/17/21 17:12 11/17/21 16:21 Notes Mental Status: alert / awake / arousable and participated in evaluation Nausea / Vomiting: adequately controlled Pain: adequately controlled Airway Patency, RR, SpO2: stable & adequate BP & HR: stable & adequate Hydration State: stable & adequate Neuraxial Anesthesia: was administered and sensory block is resolving Anesthetic Complications: no major complications apparent Epidural: Removed without complications and With tip intact
[2021-11-17] MEDS: IBUPROFEN 600 MG TAB PO PRN (20:59)
[2021-11-17] MEDS: DOCUSATE SODIUM 100 MG CAP PO SCH (21:00)
[2021-11-18 06:00] LABS: Hematocrit (blood only) 33.6 % (34.1-44.9); Hemoglobin 11.5 g/dl (12.0-16.0); Mean Corpuscular Hemoglobin 31.2 pg (25.0-34.0); Mean Corpuscular Hgb Conc 34.2 g/dL (32.0-36.0); Mean Corpuscular Volume 91.1 fL (80.0-100.0); Mean Platelet Volume 10.8 fL (9.4-12.3); Platelet Count 165 K/uL (130-400); RDW Coefficient of Variation 13.1 % (11.5-14.5); RDW Standard Deviation 42.5 fL (36.4-46.3); Red Blood Count 3.69 M/uL (3.93-5.22); White Blood Count 8.65 K/ul (4.8-10.8)
--- NOTE | 2021-11-18 06:30 | Obstetrical Progress Note ---
Date of Service <Shaina Irby DO - Last Filed: 11/18/21 06:30> November 18, 2021 Assessment & Plan <Shaina Malika Irby DO - Last Filed: 11/18/21 06:30> (1) state: Patient is PPD 1 s/p with second degree lac and doing well. - Eating well, voiding well, ambulating well - Vitals reviewed and within normal limits - Pain well controlled with ibuprofen 600 mg Q4H PRN - OOB, ambulation, diet progression as tolerated - Blood type: A+, GBS pos, rubella immune - Plan to discharge later today - After discharge, [address] up [address] Moffett <Albert Moffett MD, FACOG - Last Filed: 11/18/21 07:39> (1) state: Subjective <Shaina RaynaKristen DO Mahamed - Last Filed: 11/18/21 06:30> Sandhya Ramirez is a 30 yo female who is now PPD #1 following spontaneous vaginal delivery at 39 weeks. Reports feeling well this morning. She endorses abdominal cramping with breast feeding and 2/10 pain well managed on analgesics. Voiding well. Tolerating regular meals overnight and able to ambulate some. She has passed gas but no bowel movements. Persistent lochia with some improvement this morning. Currently breast feeding. Review of Systems Denies fever, chills, sweats. Denies SOB, difficulty breathing, chest pain, palpitations, and chest pressure. Denies breast pain. Denies dysuria. Denies headache or changes in vision. Physical Exam <Shaina Irby DO - Last Filed: 11/18/21 06:30> General: Alert and oriented. No acute distress. CV: Regular rate and rhythm. No murmurs. Respiratory: CTA bilaterally. No rhonchi, wheezes, or crackles. No increased work of breathing. Abdomen: Positive bowel sounds. Soft, nontender, non distended. Uterus: Fundus firm and palpable 3 cm below the umbilicus. Lower extremities: No LE edema. No deep calf pain. Kierra's negative bilaterally. Results & Data ([facility]) <Shaina Irby DO - Last Filed: 11/18/21 06:30> Vital Signs (Past 12 Hours) Vital Signs Temp Pulse Pulse Resp BP BP Pulse Ox 11/18/21 03:15 36.5 C 78 16 108/70 98 11/17/21 23:30 37.0 C 91 H 16 121/80 98 11/17/21 20:42 37.1 C 16 127/77 97 11/17/21 18:40 81 11/17/21 18:40 37.1 C 20 125/68 O2 Del Method 11/18/21 03:15 Room Air 11/17/21 23:30 Room Air 11/17/21 20:42 Room Air 11/17/21 18:40 11/17/21 18:40 <Albert Moffett MD, FACOG - Last Filed: 11/18/21 07:39> Co-Signing Physician Notes Resident Physician Supervision Note: I was present with [Name of resident] during the history and exam. I discussed the case with the resident and agree with the findings and plan as documented in the note. Any exceptions or clarifications are listed here: [N one] Documented By: Albert Moffett MD, FACOG Resident Activity Tracking <Shaina Irby DO - Last Filed: 11/18/21 06:30> Resident Involvement: Resident Care Provided Care Provided: OB Delivery
[2021-11-18] MEDS: DOCUSATE SODIUM 100 MG CAP PO SCH (07:51)
[2021-11-18] MEDS: IBUPROFEN 600 MG TAB PO PRN (07:51)
[2021-11-18] MEDS ORDERED: PRENATAL VITAMIN 1 TAB PO SCH (08:00)
[2021-11-18] MEDS ORDERED: bisacodyL 5 MG TABEC PO SCH (20:00)
== END 2021-11-18 17:35 | disposition home or self-care (01) | DRG 807 ==
LOC: 4S1 07:33 → 4E2 19:00